=== PATIENT | male | born 1970 | race American Indian/Alaskan Native ===

== ENCOUNTER 2018-02-04 20:42 | Emergency (ER) | payer SELFPAY ==
[2018-02-04] MEDS ORDERED: ASPIRIN PO ONE (21:01)
[2018-02-04] MEDS ORDERED: CATAPRES ONE (21:03)
[2018-02-04] MEDS ORDERED: CATAPRES PO ONE (21:09)
[2018-02-04 21:34] LABS: Basophils # (Auto) 0.1 K/mm3 (0.0-0.1); Basophils % (Auto) 0.8 % (0.0-1.8); Eosinophils # (Auto) 0.1 K/mm3 (0.0-0.4); Eosinophils % (Auto) 0.9 % (0.0-4.3); Hematocrit 39.1 % (35.5-45.6); Hemoglobin 12.4 gm/dl (11.8-15.2); Lymphocytes % (Auto) 29.4 % (13.4-35.0); Mean Corpuscular HGB Conc 32 % (32-34); Mean Corpuscular Volume 81 fl (84-94); Monocytes # (Auto) 0.5 K/mm3 (0.0-0.8); Monocytes % (Auto) 7.3 % (0.0-7.3); Platelet Count 200 K/mm3 (140-440); Red Blood Count 4.82 M/mm3 (3.65-5.03)
[2018-02-04 21:39] LABS: Mean Corpuscular Hemoglobin 26 pg (28-32)
[2018-02-04 21:57] LABS: BUN/Creatinine Ratio 13; Blood Urea Nitrogen 14 mg/dL (9-20); Calcium 9.2 mg/dL (8.4-10.2); Hemolysis Index 1
[2018-02-04 22:13] VITALS: BP 191/108
== END 2018-02-05 00:40 | disposition left against medical advice (07) ==
LOC: ED 20:42
DX: R07.89 Other chest pain (principal); Z53.21 Procedure and treatment not carried out due to patient leaving prior to being seen by health care provider
CPT/HCPCS: 36415; 80048; 84484; 85025; 93005; 93010